=== PATIENT | female | born 1935 | race Caucasian/White ===

== ENCOUNTER → 2020-08-19 | Outpatient (CLI) | payer OTHER ==
--- NOTE | 2020-08-20 05:23 | KCIC ---
XR PELVIS 1-2V, XR LUMBAR SPINE 4+V 08/19/2020 3:53 PM INDICATION: Chronic low back pain. Worsening pain post fall COMPARISON: None available. TECHNIQUE: 5 views of the lumbar spine and single AP view the pelvis provided. FINDINGS/ IMPRESSION: 1. There is grade 1 anterolisthesis of L3 on L4. Spinal augmentation changes are identified at L1. Huston perior plate Schmorl's node identified at L2 without significant height loss. There is moderate disc height loss at L3-L4 and moderate to severe disc height loss at L5-S1 with endplate sclerosis and mar ginal osteophytosis. Moderate facet arthropathy. No acute fracture. No definite spondylolysis. Athero sclerotic changes of the abdominal aorta are present. 2. 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 Superior and inferior pubic rami are intact. Sacroilia c joints are well aligned. No disruption of the pelvic ring. 3. 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 With superolateral joint space narrowing, subcortic al sclerosis and subcortical cystic change with marginal osteophytosis. Electronically signed by: Ale Roy MD (08/20/2020 5:20 AM) [id number]
== END ==
LOC: KCIC 15:31
PROVIDERS: ATTEND Preventive Medicine Public Health & General Preventive Medicine
DX: M43.16 Spondylolisthesis, lumbar region (principal); M25.78 Osteophyte, vertebrae; I70.0 Atherosclerosis of aorta; M16.12 Unilateral primary osteoarthritis, left hip; Z96.641 Presence of right artificial hip joint
CPT/HCPCS: 72110; 72170